=== PATIENT | female | born 1930 | race Caucasian/White ===

== ENCOUNTER → 2016-11-04 17:14 | Outpatient (CLI) | payer MEDICARE ==
[2015-04-02 13:44] VITALS: BMI 26.6
[~2016-11-04 17:14] MED LIST: COUMADIN1 MG PO; COUMADIN4 MG PO; MECLIZINE HCL25 MG PO; PROTONIX40 MG PO; SYNTHROID25 MCG; SYNTHROID25 MCG PO; SYNTHROID50 MCG PO
== END | disposition home or self-care (01) ==
LOC: D.US 16:30
DX: R60.0 Localized edema (principal); M79.605 Pain in left leg; Z86.718 Personal history of other venous thrombosis and embolism

== ENCOUNTER → 2018-04-06 13:58 | Outpatient (CLI) | payer MEDICARE ==
[2015-04-02 13:44] VITALS: BMI 26.6
[~2018-04-06 13:58] MED LIST changes: +NEURONTIN 300300 MG PO; +ZOVIRAX800 MG PO
== END | disposition home or self-care (01) ==
LOC: D.US 13:58
DX: R60.0 Localized edema (principal); Z86.718 Personal history of other venous thrombosis and embolism

== ENCOUNTER 2018-05-16 09:19 | Emergency (ER) | payer MEDICARE ==
[~2018-05-16] VITALS: Ht 165.1 cm; Wt 72.3 kg
[~2018-05-16 09:19] MED LIST changes: -NEURONTIN 300300 MG PO; -ZOVIRAX800 MG PO
[2018-05-16 09:23] VITALS: Ht 165.1 cm; Wt 72.3 kg
[2018-05-16 09:46] LABS: BASOPHILS 0.3 % (0-2); EOSINOPHILS 4.2 % (0-7); HEMATOCRIT 42.3 % (36.0-48.0); HEMOGLOBIN 14.2 g/dL (12-16); LYMPHOCYTES 46.4 % (15-50); MCH 32.3 pg (26.0-34.0); MCHC 33.6 g/dL (31.0-37.0); MCV 96.4 fL (80.0-100.0); MEAN PLATELET VOLUME 10.1 fL (7.4-10.4); MONOCYTES 15.5 % (2-11); NEUTROPHILS 33.6 % (40-80); PLATELET COUNT 329 10x3/uL (130-400); RBC 4.39 10x6/uL (4.00-5.40); RDW 12.8 % (11.5-14.5); WBC 6.5 10x3/uL (4.8-10.8)
[2018-05-16 10:02] LABS: ALBUMIN 3.6 g/dL (3.4-5.0); ALKALINE PHOSPHATASE 77 U/L (46-116); ALT (SGPT) 23 U/L (10-68); BILIRUBIN - TOTAL 0.38 mg/dL (0.2-1.3); CALC OSMOLALITY 273 mosm/kg (275-300); CARBON DIOXIDE 26.5 mmol/L (21.0-32.0); CHLORIDE - SERUM 103 mmol/L (98-107); CREATININE - SERUM 0.9 mg/dL (0.6-1.3); POTASSIUM - SERUM 4.1 mmol/L (3.5-5.1); PROTEIN - SERUM 8.7 g/dL (6.4-8.2); SODIUM 136 mmol/L (136-145); UREA NITROGEN 17 mg/dL (7-18); eGFR NON AFRICAN AMERICAN 63 mL/min (90-120)
[2018-05-16 10:04] LABS: GLUCOSE 92 mg/dL (74-106)
[2018-05-16 10:10] LABS: LIPASE 257 U/L (73-393); PRO BNP 48 pg/mL (0-450); TROPONIN-I < 0.017 ng/mL (0.000-0.060)
[2018-05-16 11:11] LABS: APPEARANCE CLEAR (CLEAR); COLOR STRAW (YELLOW)
[2018-05-16 11:12] LABS: BACTERIA FEW /hpf (NONE SEEN); BILIRUBIN NEGATIVE (NEGATIVE); EPITHELIAL CELLS RARE /hpf (0-5); GLUCOSE NEGATIVE (NEGATIVE); KETONE NEGATIVE (NEGATIVE); NITRITE NEGATIVE (NEGATIVE); PROTEIN NEGATIVE (NEGATIVE); SPECIFIC GRAVITY 1.005 (1.005-1.020); TALC POWDER CRYSTALS OCC /hpf (NONE SEEN); UROBILINOGEN NORMAL (NORMAL); WHITE CELLS - URINE 0-5 /hpf (0-5)
[2018-05-16 13:28] VITALS: BP 174/81
== END 2018-05-16 13:29 | disposition home or self-care (01) ==
LOC: D.ER 09:19
PROVIDERS: Family Medicine
DX: R10.9 Unspecified abdominal pain (principal); R11.0 Nausea; E07.9 Disorder of thyroid, unspecified

== ENCOUNTER 2018-05-22 14:45 | Emergency (ER) | payer MEDICARE ==
[~2018-05-22] VITALS: Ht 165.1 cm; Wt 71.8 kg
[2018-05-22 15:13] VITALS: Ht 165.1 cm; Wt 71.8 kg
[2018-05-22] MEDS ORDERED: ZOVIRAX800 MG PO (16:13)
[2018-05-22] MEDS ORDERED: NEURONTIN 300300 MG PO (16:13)
[2018-05-22 16:45] VITALS: BP 155/69
== END 2018-05-22 16:45 | disposition home or self-care (01) ==
LOC: D.ER 14:45
DX: B02.9 Zoster without complications (principal); M79.2 Neuralgia and neuritis, unspecified

== ENCOUNTER 2018-06-05 19:52 | Inpatient (IN) | payer MEDICARE ==
[~2018-06-05] VITALS: Ht 165.1 cm; Wt 71.8 kg
--- NOTE | ~2018-06-05 | HP ---
PATIENT: LORA RICKETTS MEDICAL RECORD: [id number] ACCOUNT: [id number] LOCATION:[address] : 32 ADMISSION DATE: 06/05/18 PCP: YOVANA ODELL MD HISTORY AND PHYSICAL EXAMINATION DATE OF EXAMINATION: 06/06/2018 CHIEF COMPLAINT: Weakness. HISTORY: This is an 88-year-old female brought in by family complaining of generalized weakness. She felt like she was going to pass out at least twice during the day. She had no fever, chills, nausea, or vomiting. No chest pain or shortness of breath. No dyspnea on exertion. Workup in the Emergency Room showed elevated D-dimer. She eventually had a CT angiography of the chest with PE protocol that showed a small subsegmental PE. She is admitted. PAST MEDICAL AND SURGICAL HISTORY: She had a pulmonary embolus many years ago and was on Coumadin for quite some time before being cleared by Dr. Guillen. She has a history of iron-deficiency anemia and has been followed by Dr. Guillen. She has a history of renal cell carcinoma, hypothyroidism, and osteoporosis. PAST SURGICAL HISTORY: Nephrectomy. HOME MEDICATIONS: Omeprazole 20 mg twice a day, levothyroxine 50 mcg once a day, and tramadol p.r.n. ALLERGIES: No known drug allergies. SOCIAL HISTORY: She is . She has lots of family nearby. HABITS: Never smoked. No alcohol or drugs. FAMILY HISTORY: Father at 78. He had complications of diabetes. Mother at 78. She had complications of COPD. REVIEW OF SYSTEMS: GENERAL: No major weight changes. HEENT: No particular sinus or allergy problems. RESPIRATORY: No history of asthma or emphysema. No cough, wheeze, or shortness of breath. CARDIAC: No history of coronary disease. GASTROINTESTINAL: She has heartburn. GENITOURINARY: Occasional UTI. MUSCULOSKELETAL: No significant joint aches and pains. NEUROLOGIC: No seizures or migraine headaches. PSYCHIATRIC: Denies depression or melancholia. PHYSICAL EXAMINATION: VITAL SIGNS: Temperature 98.1, pulse 88, respirations 20, blood pressure 114/65, and O2 sat 94%. GENERAL: She is awake and alert. She does not appear in acute distress at this time. SKIN: Warm and dry. HEENT: Grossly within normal limits. HISTORY AND PHYSICAL [id number] JAMARCUS,LORA NECK: Supple. HEART: Regular rate and rhythm without murmur. LUNGS: Clear. ABDOMEN: Soft. EXTREMITIES: No edema. LABORATORY WORK: CBC is essentially normal. Basic metabolic panel is all normal except BUN a little elevated at 28, creatinine is 1.1, and glucose 119. Liver enzymes are all normal. Troponin is less than 0.017 times 2. D-dimer is elevated at 3.63. Urinalysis is negative. DIAGNOSTIC DATA: Chest x-ray is done, showing no acute cardiopulmonary abnormality seen. CT of the head was done showing no acute intracranial abnormality. Moderate burden of white matter changes, likely representing chronic small vessel ischemic changes. CTA of the chest with PE protocol shows subsegmental filling defect in the posterior basal segment of the right lower lobe compatible with a small pulmonary embolus. She has coronary and aortic atherosclerosis. ASSESSMENT: 1. Pulmonary embolus. 2. Weakness. 3. History of remote pulmonary embolus. PLAN: She is started on Lovenox. We will continue her usual medications. We will ask case management to look into the costs of Xarelto, Eliquis, and Pradaxa. If it is affordable, we will start one of those; if not, we will start warfarin as she has been on that in the past. We will also get venous Doppler ultrasound of the lower extremities to rule out DVTs. TRANSINT:[id number] Voice Confirmation ID: [id number] DOCUMENT ID: [id number] YOVANA ODELL MD at 0007 CC: [id number] DICTATION DATE: 06/07/18 1255 COOK RELIEF: 06/07/18 1328 DIS IN 06/07/18 [id number] [place] [address]
[~2018-06-05 19:52] MED LIST changes: +NEURONTIN 300300 MG PO; +ZOVIRAX800 MG PO
[2018-06-05 20:26] LABS: BASOPHILS 0.3 % (0-2); EOSINOPHILS 2.3 % (0-7); HEMATOCRIT 38.8 % (36.0-48.0); HEMOGLOBIN 13.2 g/dL (12-16); IMMATURE GRANULOCYTES 0.3 % (0-5); LYMPHOCYTES 26.3 % (15-50); MCH 32.5 pg (26.0-34.0); MCV 95.6 fL (80.0-100.0); MEAN PLATELET VOLUME 9.2 fL (7.4-10.4); MONOCYTES 14.4 % (2-11); NEUTROPHILS 56.4 % (40-80); PLATELET COUNT 386 10x3/uL (130-400); RBC 4.06 10x6/uL (4.00-5.40); RDW 13.3 % (11.5-14.5); WBC 9.1 10x3/uL (4.8-10.8)
[2018-06-05 20:37] LABS: APPEARANCE CLEAR (CLEAR); BILIRUBIN NEGATIVE (NEGATIVE); COLOR YELLOW (YELLOW); GLUCOSE NEGATIVE (NEGATIVE); KETONE NEGATIVE (NEGATIVE); NITRITE NEGATIVE (NEGATIVE); PROTEIN NEGATIVE (NEGATIVE); UROBILINOGEN NORMAL (NORMAL)
[2018-06-05 20:41] LABS: ALBUMIN 2.9 g/dL (3.4-5.0); ALKALINE PHOSPHATASE 65 U/L (46-116); ALT (SGPT) 18 U/L (10-68); BILIRUBIN - TOTAL 0.14 mg/dL (0.2-1.3); CALC OSMOLALITY 272 mosm/kg (275-300); CALCIUM 8.9 mg/dL (8.5-10.1); CARBON DIOXIDE 29.7 mmol/L (21.0-32.0); CHLORIDE - SERUM 98 mmol/L (98-107); CREATININE - SERUM 1.1 mg/dL (0.6-1.3); GLUCOSE 119 mg/dL (74-106); POTASSIUM - SERUM 4.7 mmol/L (3.5-5.1); PROTEIN - SERUM 7.8 g/dL (6.4-8.2); SODIUM 133 mmol/L (136-145); UREA NITROGEN 28 mg/dL (7-18); eGFR NON AFRICAN AMERICAN 50 mL/min (90-120)
[2018-06-05 20:52] LABS: CKMB 0.8 U/L (0.0-3.6); CREATINE KINASE 34 UL (21-215)
[2018-06-05 20:54] LABS: TROPONIN-I < 0.017 ng/mL (0.000-0.060)
[2018-06-05 21:43] VITALS: BP 174/86
[2018-06-05 23:10] VITALS: BP 172/84
[2018-06-06] MEDS ORDERED: FERROUS SULFAT325 MG PO (00:54)
[2018-06-06 03:03] LABS: BASOPHILS 0.3 % (0-2); EOSINOPHILS 2.5 % (0-7); HEMATOCRIT 39.7 % (36.0-48.0); HEMOGLOBIN 13.5 g/dL (12-16); IMMATURE GRANULOCYTES 0.1 % (0-5); LYMPHOCYTES 21.7 % (15-50); MCH 32.2 pg (26.0-34.0); MCV 94.7 fL (80.0-100.0); MEAN PLATELET VOLUME 9.7 fL (7.4-10.4); MONOCYTES 13.4 % (2-11); PLATELET COUNT 354 10x3/uL (130-400); RBC 4.19 10x6/uL (4.00-5.40); RDW 13.4 % (11.5-14.5); WBC 7.2 10x3/uL (4.8-10.8)
[2018-06-06 03:33] LABS: CALC OSMOLALITY 276 mosm/kg (275-300); CALCIUM 8.7 mg/dL (8.5-10.1); CARBON DIOXIDE 27.6 mmol/L (21.0-32.0); CHLORIDE - SERUM 102 mmol/L (98-107); CKMB 1.1 U/L (0.0-3.6); CREATINE KINASE 56 UL (21-215); GLUCOSE 115 mg/dL (74-106); POTASSIUM - SERUM 4.8 mmol/L (3.5-5.1); SODIUM 136 mmol/L (136-145); TROPONIN-I < 0.017 ng/mL (0.000-0.060); UREA NITROGEN 24 mg/dL (7-18); eGFR NON AFRICAN AMERICAN 56 mL/min (90-120)
[2018-06-06 04:00] VITALS: BP 132/54
[2018-06-06 08:32] VITALS: BP 142/76
[2018-06-06 09:27] LABS: CREATINE KINASE 70 UL (21-215); TROPONIN-I < 0.017 ng/mL (0.000-0.060)
[2018-06-06 10:55] VITALS: BP 113/61
[2018-06-06 12:43] VITALS: BMI 26.2
[2018-06-06 14:50] LABS: CKMB 0.9 U/L (0.0-3.6); CREATINE KINASE 45 UL (21-215); TROPONIN-I < 0.017 ng/mL (0.000-0.060)
[2018-06-06 15:20] VITALS: BP 114/65
[2018-06-06 20:12] VITALS: BP 174/86; Ht 165.1 cm; Wt 71.8 kg
[2018-06-06 22:06] VITALS: BP 133/68
[2018-06-07 00:47] VITALS: BP 139/73
[2018-06-07 05:23] VITALS: BP 123/62
[2018-06-07 08:30] VITALS: BP 150/65
[2018-06-07 11:30] VITALS: BP 138/76
[2018-06-07] MEDS ORDERED: ELIQUIS5 MG PO (13:07)
[2018-06-07 15:00] VITALS: BP 166/82
== END 2018-06-07 17:03 | disposition home health service (06) | DRG 176 ==
LOC: D.ER 19:52 → D.M2 23:32
PROVIDERS: Family Medicine
DX: I26.99 Other pulmonary embolism without acute cor pulmonale (principal); R53.1 Weakness; E03.9 Hypothyroidism, unspecified; M81.0 Age-related osteoporosis without current pathological fracture